=== PATIENT | male | born 1930 | race Caucasian/White ===

== ENCOUNTER 2017-04-13 13:57 | Outpatient (RCR) | payer MEDICARE, OTHER | END 2017-07-12 | disposition home or self-care (01) | LOC: ONC 13:57 | PROVIDERS: ATTEND Radiology Radiation Oncology | DX: C20 Malignant neoplasm of rectum (principal) | CPT/HCPCS: 99214 ==

== ENCOUNTER → 2019-01-02 | Outpatient (CLI) | payer MEDICARE, OTHER ==
[2019-01-02 14:49] LABS: CALCIUM 9.5 MG/DL (8.5-10.1); CREATININE SERUM 1.4 MG/DL (0.60-1.30); POTASSIUM 5.4 MMOL/L (3.6-5.0)
== END ==
LOC: LAB 14:08
PROVIDERS: ATTEND Pediatrics
DX: R60.0 Localized edema (principal)
CPT/HCPCS: 36415; 80048

== ENCOUNTER → 2019-01-11 | Outpatient (CLI) | payer MEDICARE, OTHER | LOC: CARD 11:08 | PROVIDERS: ATTEND Pediatrics | DX: I10 Essential (primary) hypertension (principal) | CPT/HCPCS: 93306 ==

== ENCOUNTER → 2019-08-16 | Outpatient (CLI) | payer MEDICARE, OTHER ==
[2019-08-16 11:44] LABS: BASOPHILS % (AUTO) 1 % (0-10); HEMATOCRIT 38 % (40-54); HEMOGLOBIN 11.7 G/DL (13.3-17.7); LYMPHOCYTES % (AUTO) 20 % (12-44); MEAN CORPUSCULAR HEMOGLOBIN 31 PG (25-34); MEAN CORPUSCULAR HGB CONC 31 G/DL (32-36); MEAN CORPUSCULAR VOLUME 99 FL (80-99); MEAN PLATELET VOLUME 10.6 FL (7.4-10.4); MONOCYTES % (AUTO) 9 % (0-12); NEUTROPHILS % (AUTO) 65 % (42-75); PLATELET COUNT 169 10^3/uL (130-400); RED CELL DISTRIBUTION WIDTH 14.5 % (10.0-14.5); WHITE BLOOD COUNT 6.2 10^3/uL (4.3-11.0)
[2019-08-16 11:45] LABS: BASOPHILS # (AUTO) 0.1 10^3/uL (0.0-0.1); EOSINOPHILS # (AUTO) 0.3 10^3/uL (0.0-0.3); EOSINOPHILS % (AUTO) 5 % (0-10); LYMPHOCYTES # (AUTO) 1.2 X 10^3 (1.0-4.0); MONOCYTES # (AUTO) 0.5 X 10^3 (0.0-1.0)
[2019-08-16 12:17] LABS: ALBUMIN 3.7 GM/DL (3.2-4.5); BILIRUBIN,TOTAL 0.6 MG/DL (0.1-1.0); CREATININE SERUM 1.56 MG/DL (0.60-1.30); TOTAL PROTEIN 6.7 GM/DL (6.4-8.2)
--- NOTE | 2019-08-17 14:41 | Diagnostic Imaging Report ---
PROCEDURE: CT chest, abdomen, and pelvis without contrast. TECHNIQUE: Multiple contiguous axial images were obtained through the chest, abdomen, and pelvis without the use of intravenous contrast. Auto Exposure Controls were utilized during the CT exam to meet ALARA standards for radiation dose reduction. INDICATION: Rectal carcinoma. The previous CT chest, abdomen and pelvis exam performed at [facility] in [place], [place] on 08/16/2019 noted postoperative changes consistent with a prior resection of a rectal carcinoma. There is no evidence for metastatic disease involving the chest, abdomen or pelvis however. This study is limited in evaluation for neoplastic disease due to the absence of intravenous contrast. Even so, there does not appear to have been any significant change since the prior study. There is no evidence for a mass in the region of the prior rectosigmoid resection to suggest recurrent neoplasm. There is no pelvic adenopathy identified either. The images through the upper abdomen failed to show any definite defect within the liver and there is no retroperitoneal or periaortic adenopathy noted. Images through the thorax show the heart is enlarged and that there are extensive coronary artery calcification evident. The mediastinal nodes seen previously are again evident and unchanged. There is no parenchymal lung mass visualized. The bone windows show no sign of a fracture or of a destructive lesion. As noted on the prior study, there is diverticulosis of the sigmoid and descending colon, but there is no sign of acute diverticulitis. The appendix was visualized and is not abnormally thickened. The cholelithiasis seen previously is again evident. There are still no sign of acute cholecystitis. The suspected cysts involving the kidneys noted on the prior study are unchanged. As noted previously, there are numerous calcifications within the spleen. 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 The adrenal glands the aorta and the inferior vena cava were unremarkable. The stomach is partially filled with fluid and consequently difficult to assess. The thyroid gland shows no definite abnormality. The prostate gland and urinary bladder are grossly unremarkable. The dorsal stimulator device seen previously is again evident. IMPRESSION: The overall appearance of the chest, abdomen and pelvis is stable when compared to prior study. There is no sign of metastatic disease. This exam is somewhat limited in evaluation for metastatic disease, however due to the absence of intravenous contrast. Dictated by: Dictated on workstation # [id number]
== END ==
LOC: RAD FS 10:48
PROVIDERS: ATTEND Internal Medicine Hematology & Oncology
DX: C20 Malignant neoplasm of rectum (principal)
CPT/HCPCS: 36415; 71250; 74176; 80053; 82378; 83615; 85025

== ENCOUNTER → 2019-11-12 | Outpatient (CLI) | payer MEDICARE, OTHER ==
[2019-11-12 13:40] LABS: ALBUMIN 3.8 GM/DL (3.2-4.5); BILIRUBIN,TOTAL 0.7 MG/DL (0.1-1.0); CALCIUM 9.2 MG/DL (8.5-10.1); CREATININE SERUM 1.49 MG/DL (0.60-1.30); POTASSIUM 5.7 MMOL/L (3.6-5.0); TOTAL PROTEIN 6.8 GM/DL (6.4-8.2)
[2019-11-12 14:02] LABS: FREE T4 (FREE THYROXINE) 0.94 NG/DL (0.70-1.48)
== END ==
LOC: LAB 12:24
PROVIDERS: ATTEND Pediatrics
DX: E11.9 Type 2 diabetes mellitus without complications (principal)
CPT/HCPCS: 36415; 80053; 83036; 84439; 84443

== ENCOUNTER → 2020-04-09 | Outpatient (CLI) | payer MEDICARE, OTHER ==
[~2020-04-09] MED LIST: ASPI-999 PO; ATEN50TA PO; CEFD300C3 PO; FURO20TA4 PO; FURO40TA4 PO; GABA-488 PO; GLYB5TAB6 PO; MELO15TA39 PO; PIOG30TA71 PO; POTA10CA43 PO; TRIA1CAP4 PO
[2020-04-09 17:03] LABS: POTASSIUM 4.2 MMOL/L (3.6-5.0)
[2020-04-09 17:05] LABS: CREATININE SERUM 1.62 MG/DL (0.60-1.30)
== END ==
LOC: LAB FS 15:40
PROVIDERS: ATTEND Family Medicine
DX: I50.33 Acute on chronic diastolic (congestive) heart failure (principal)
CPT/HCPCS: 36415; 80048; 83735

== ENCOUNTER → 2020-09-15 | Outpatient (CLI) | payer MEDICARE, OTHER ==
[2020-09-15 09:39] LABS: HEMOGLOBIN 11.8 G/DL (13.3-17.7); MEAN CORPUSCULAR HEMOGLOBIN 30 PG (25-34); WHITE BLOOD COUNT 6.5 10^3/uL (4.3-11.0)
[2020-09-15 09:40] LABS: BASOPHILS % (AUTO) 1 % (0-10); EOSINOPHILS % (AUTO) 8 % (0-10); HEMATOCRIT 36 % (40-54); LYMPHOCYTES % (AUTO) 20 % (12-44); MEAN CORPUSCULAR HGB CONC 33 G/DL (32-36); MEAN CORPUSCULAR VOLUME 92 FL (80-99); MEAN PLATELET VOLUME 10.3 FL (7.4-10.4); MONOCYTES % (AUTO) 7 % (0-12); NEUTROPHILS # (AUTO) 4.1 X 10^3 (1.8-7.8); NEUTROPHILS % (AUTO) 63 % (42-75); PLATELET COUNT 182 10^3/uL (130-400)
[2020-09-15 09:41] LABS: BASOPHILS # (AUTO) 0.1 10^3/uL (0.0-0.1); EOSINOPHILS # (AUTO) 0.5 10^3/uL (0.0-0.3); LYMPHOCYTES # (AUTO) 1.3 X 10^3 (1.0-4.0); MONOCYTES # (AUTO) 0.5 X 10^3 (0.0-1.0)
[2020-09-15 09:58] LABS: CALCIUM 8.9 MG/DL (8.5-10.1); CREATININE SERUM 1.53 MG/DL (0.60-1.30)
[2020-09-15 09:59] LABS: ALBUMIN 3.7 GM/DL (3.2-4.5); BILIRUBIN,TOTAL 0.8 MG/DL (0.1-1.0); TOTAL PROTEIN 6.9 GM/DL (6.4-8.2)
--- NOTE | 2020-09-15 10:45 | Diagnostic Imaging Report ---
PROCEDURE: CT chest, abdomen, and pelvis without contrast. TECHNIQUE: Multiple contiguous axial images were obtained through the chest, abdomen, and pelvis without the use of intravenous contrast. Auto Exposure Controls were utilized during the CT exam to meet ALARA standards for radiation dose reduction. INDICATION: Rectal carcinoma, follow-up. Comparison is made with prior CT from 08/16/2019. CT CHEST: No axillary lymphadenopathy is identified. Mediastinal and hilar evaluation is limited without intravenous contrast. Mildly prominent lymph nodes in mediastinum appear to be stable. There are coronary arterial calcifications present. No pericardial fluid is identified. Patient has developed a very small right pleural effusion. No pulmonary mass, nodule or infiltrate is detected. IMPRESSION: 1. Development of small right pleural effusion. Remainder of the study appears to be stable. No pulmonary mass or nodule is identified. CT abdomen and pelvis: No discrete liver mass is identified. Small stones within the gallbladder are again noted. There is no biliary ductal dilatation. Pancreas unremarkable. Spleen contains numerous calcified nodules consistent with granulomas. No adrenal mass is identified. Renal cortical low densities appear to be stable and suggestive of cysts. Aorta is non-aneurysmal. No central retroperitoneal or mesenteric lymphadenopathy is seen. Bowel loops are normal caliber. There is diverticulosis of the sigmoid and descending colon. Postsurgical changes at the rectosigmoid junction are again noted. No mass is seen. No definite pelvic lymphadenopathy is identified. The bladder is decompressed. Prostate gland is normal size. Bony structures are nonacute. IMPRESSION: 1. Cholelithiasis. 2. Postsurgical changes at the rectosigmoid junction. No abdominal or pelvic mass or lymphadenopathy is identified. 3. Uncomplicated diverticulosis. Dictated by: Dictated on workstation # [id number]
== END ==
LOC: RAD FS 09:07
PROVIDERS: ATTEND Internal Medicine Hematology & Oncology
DX: C20 Malignant neoplasm of rectum (principal); K80.20 Calculus of gallbladder without cholecystitis without obstruction; K57.30 Diverticulosis of large intestine without perforation or abscess without bleeding
CPT/HCPCS: 36415; 71250; 74176; 80053; 82378; 83615; 85025

== ENCOUNTER 2021-04-29 13:50 | Emergency (ER) | payer MEDICARE, OTHER ==
[~2021-04-29 13:50] MED LIST changes: +GLBR5T PO; -GLYB5TAB6 PO
[2021-04-29] MEDS ORDERED: ACETAMINOPHEN 325 MG TABLET PO STA (14:09)
--- NOTE | 2021-04-29 14:15 | ED General ---
General Stated Complaint: FEVER Source of Information: Patient, EMS History of Present Illness Date Seen by Provider: Apr 29, 2021 Time Seen by Provider: 13:52 Initial Comments 89 yo male presenting by EMS from home with complaint of fever and not feeling well x 2 days. He is incontinent of stool and urine and wears a brief. He has been having a cough and some shortness of breath. He denies any chest or abdomen pain. He has increased swelling to his legs. He has had Covid Vaccination. No ill contacts that he knows about. Timing/Duration: 1-2 Days Severity: Moderate Associated Systoms: No Chest Pain; Cough; No Diaphoresis; Fever/Chills; No Headaches; Malaise; No Nausea/Vomiting, No Rash, No Seizure; Shortness of Air; No Syncope; Weakness Allergies and Home Medications Allergies Coded Allergies: No Known Drug Allergies (Unverified , 03/31/20) Home Medications Aspirin 81 Mg Tab.chew, 81 MG PO DAILY Prescribed by: MARKOS GREWAL on 04/03/20 1224 Atenolol 50 Mg Tablet, 50 MG PO DAILY, (Reported) Cefdinir 300 Mg Capsule, 300 MG PO BID Prescribed by: SWETA IBARRA on 04/03/20 1239 Furosemide 40 Mg Tablet, 40 MG PO DAILY Prescribed by: MARKOS GREWAL on 04/03/20 1224 Gabapentin 300 Mg Capsule, 300 MG PO BID, (Reported) Glyburide 5 Mg Tablet, 10 MG PO DAILY, (Reported) Glyburide 5 Mg Tablet, 5 MG PO 1200,1800, (Reported) Pioglitazone HCl 30 Mg Tablet, 30 MG PO DAILY, (Reported) Potassium Chloride 10 Meq Capsule.er, 10 MEQ PO DAILY Prescribed by: MARKOS GREWAL on 04/03/20 1224 Patient Home Medication List Home Medication List Reviewed: Yes Review of Systems Review of Systems Constitutional: chills, fever, malaise EENTM: no symptoms reported Respiratory: cough, short of breath Cardiovascular: No chest pain; edema (increased edema to BLE) Gastrointestinal: see HPI Genitourinary: incontinence Musculoskeletal: joint pain (chronic right knee pain and uses walker for ambulation) Skin: No rash Psychiatric/Neurological: Denies Headache; Weakness (general) Hematologic/Lymphatic: Denies Blood Clots Past Acuudkr-Vozchu-Deeibl Hx Past Med/Social Hx: Reviewed Nursing Past Med/Soc Hx Patient Social History 2nd Hand Smoke Exposure: No Recent Hopitalizations: No Past Medical History Surgeries: No Respiratory: No Cardiac: Yes (CHF) Cardiomyopathy, Chronic Edema/Swelling, Hypertension Genitourinary: No Gastrointestinal: No Musculoskeletal: No Endocrine: Yes Diabetes, Non-Insulin dep HEENT: No Cancer: No Psychosocial: No Integumentary: No Blood Disorders: No Physical Exam Vital Signs Vital Signs - First Documented 04/29/21 04/29/21 13:55 14:20 Temp 38.4 Pulse 79 Resp 26 B/P (MAP) 144/64 (90) Pulse Ox 85 O2 Delivery Room Air O2 Flow Rate 2.00 FiO2 94 Capillary Refill : Height, Weight, BMI Height: '" Weight: lbs. oz. 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 as Tested Skin: Warm/Dry, Pallor Focused Exam Lactate Level 04/29/21 14:10: Lactic Acid Level 1.69 Lactic Acid Level Laboratory Tests Test 04/29/21 14:10 Lactic Acid Level 1.69 MMOL/L (0.50-2.00) Progress/Results/Core Measures Suspected Sepsis SIRS Temperature: Pulse: Respiratory Rate: Laboratory Tests 04/29/21 14:10: White Blood Count 7.6 Blood Pressure / Mean: 04/29/21 14:10: Lactic Acid Level 1.69 Laboratory Tests 04/29/21 14:10: Creatinine 1.41H, Platelet Count 148, Total Bilirubin 1.6H Results/Orders Lab Results Laboratory Tests Test 04/29/21 14:00 04/29/21 14:10 Range/Units Urine Color YELLOW Urine Clarity CLEAR Urine pH 6.0 5-9 Urine Specific [place] 1.025 H 1.016-1.022 Urine Protein 1+ H NEGATIVE Urine Glucose (UA) NEGATIVE NEGATIVE Urine Ketones TRACE H NEGATIVE Urine Nitrite NEGATIVE NEGATIVE Urine Bilirubin NEGATIVE NEGATIVE Urine Urobilinogen 1.0 < = 1.0 MG/DL Urine Leukocyte Esterase NEGATIVE NEGATIVE Urine RBC (Auto) 1+ H NEGATIVE Urine RBC 5-10 H /HPF Urine WBC 0-2 /HPF Urine Squamous Epithelial Cells 2-5 /HPF Urine Crystals /LPF Urine Amorphous Sediment FEW JEAN CARLOS URATES H /LPF Urine Bacteria NEGATIVE /HPF Urine Casts PRESENT /LPF Urine Hyaline Casts 0-2 H /LPF Urine Mucus MODERATE H /LPF Urine Culture Indicated NO White Blood Count 7.6 4.3-11.0 10^3/uL Red Blood Count 3.93 L 4.35-5.85 10^6/uL Hemoglobin 12.0 L 13.3-17.7 G/DL Hematocrit 37 L 40-54 % Mean Corpuscular Volume 93 80-99 FL Mean Corpuscular Hemoglobin 31 25-34 PG Mean Corpuscular Hemoglobin Concent 33 32-36 G/DL Red Cell Distribution Width 14.6 H 10.0-14.5 % Platelet Count 148 130-400 10^3/uL Mean Platelet Volume 10.7 H 7.4-10.4 FL Immature Granulocyte % (Auto) 1 % Neutrophils (%) (Auto) 74 42-75 % Lymphocytes (%) (Auto) 14 12-44 % Monocytes (%) (Auto) 11 0-12 % Eosinophils (%) (Auto) 0 0-10 % Basophils (%) (Auto) 1 0-10 % Neutrophils # (Auto) 5.6 1.8-7.8 X 10^3 Lymphocytes # (Auto) 1.1 1.0-4.0 X 10^3 Monocytes # (Auto) 0.8 0.0-1.0 X 10^3 Eosinophils # (Auto) 0.0 0.0-0.3 10^3/uL Basophils # (Auto) 0.0 0.0-0.1 10^3/uL Immature Granulocyte # (Auto) 0.0 0.0-0.1 10^3/uL Sodium Level 139 135-145 MMOL/L Potassium Level 4.2 3.6-5.0 MMOL/L Chloride Level 102 98-107 MMOL/L Carbon Dioxide Level 24 21-32 MMOL/L Anion Gap 13 5-14 MMOL/L Blood Urea Nitrogen 28 H 7-18 MG/DL Creatinine 1.41 H 0.60-1.30 MG/DL Estimat Glomerular Filtration Rate 47 BUN/Creatinine Ratio 20 Glucose Level 171 H 70-105 MG/DL Lactic Acid Level 1.69 0.50-2.00 MMOL/L Calcium Level 8.9 8.5-10.1 MG/DL Corrected Calcium 9.3 8.5-10.1 MG/DL Magnesium Level 1.8 1.6-2.4 MG/DL Total Bilirubin 1.6 H 0.1-1.0 MG/DL Aspartate Amino Transf (AST/SGOT) 22 5-34 U/L Alanine Aminotransferase (ALT/SGPT) 10 0-55 U/L Alkaline Phosphatase 109 40-136 U/L Troponin I < 0.30 <0.30 NG/ML C-Reactive Protein 1.01 H <0.50 MG/DL Pro-B-Type Natriuretic Peptide 11124.0 H <75.0 PG/ML Total Protein 6.7 6.4-8.2 GM/DL Albumin 3.5 3.2-4.5 GM/DL My Orders Orders - TRACEY THURSTON MD Cbc With Automated Diff (04/29/21 14:06) Comprehensive Metabolic Panel (04/29/21 14:06) Blood Culture (04/29/21 14:06) Ua Culture If Indicated (04/29/21 14:06) Chest 1 View Ap/Pa Only (04/29/21 14:06) Ed Iv/Invasive Line Start (04/29/21 14:06) Crp Fs (04/29/21 14:06) Lactic Acid Analyzer (04/29/21 14:06) Troponin I Fs (04/29/21 14:06) Magnesium (04/29/21 14:06) Probnp Fs (04/29/21 14:06) Can Cath (04/29/21 14:06) Monitor-Rhythm Ecg Trace Only (04/29/21 14:06) Ekg Tracing (04/29/21 14:08) O2 (04/29/21 14:08) Acetaminophen Tablet/Caplet (Tylenol T (04/29/21 14:09) Furosemide Injection (Lasix Injection) (04/29/21 15:14) Levofloxacin 500 Mg/100 Ml Iv (Levaquin (04/29/21 15:22) Vital Signs/I&O 04/29/21 04/29/21 04/29/21 13:55 14:20 15:36 Temp 38.4 37.5 Pulse 79 78 Resp 26 20 B/P (MAP) 144/64 (90) 132/58 Pulse Ox 85 94 94 O2 Delivery Room Air Nasal Cannula Nasal Cannula O2 Flow Rate 2.00 2.00 FiO2 94 Capillary Refill : Progress Note #1: Progress Note obtain labs with blood cultures and lactic acid. ECG and cardiac threat monitoring analyst. CXR with his hypoxia and fever. supplemental O2 to help maintain sats over 91%. Can catheter to monitor urine output and obtain urine for testing. Differential diagnosis includes pneumonia, sepsis, uti, pyelonephritis, CHF exacerbation Progress Note #2: Progress Note labs do not sh ow elevated WBC or lactic acid. Stable renal insufficiency. CXR shows CHF with pleural effusion and possible infiltrate right [place] [address]. This is about 4 times the level he was last March 2020. With low grade fever and hypoxia he likely does have a little pneumonia with not being able to fully expand lungs due to pleural effusion and CHF exacerbation. Will give IV lasix and check with pt about where he wants to be admitted since he follows with Dr. Bradley we would usually send the patient to [facility]. Pt and spouse were wanting to go to [facility] and see Dr. Bradley. They thought he might be on vacation already though. 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 1520 d/w Dr. Bradley and he accepted pt. 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 Will give first dose of antibiotics by giving Levaquin 500 mg IV x 1 at the request of Dr. Bradley. ECG Initial ECG Impression Date: Apr 29, 2021 Initial ECG Impression Time: 14:12 Initial ECG Rate: 77 Initial ECG Rhythm: Normal Sinus Initial ECG Comparisson: Unchanged Comment Ectopic atrial rhythm with rate 77 bpm. [place] interval of [address] ms. [address]. No acute [address] elevation. QT interval of 453 ms and QTc interval of 513 ms. Appears stable from prior tracings March 2020. Diagnostic Imaging Diagonstic Imaging: Xray Plain Films/CT/US/NM/MRI: chest Comments [facility] [place], [place] NAME: FRANCISCO MARTINEZ [facility] REC#: [id number] PT STATUS: REG ER : 1930 PHYSICIAN: TRACEY THURSTON MD ADMIT DATE: 04/29/21/ER FS Draft Date of Exam:04/29/21 CHEST 1 VIEW AP/PA ONLY INDICATION: Cough and fever. EXAMINATION: Portable chest at 02:01 p.m. FINDINGS: There is cardiomegaly. There is pulmonary vascular congestion. There is a right pleural effusion. IMPRESSION: Congestive heart failure with small right pleural effusion. Some superimposed right basilar pneumonia cannot be excluded. Dictated on workstation # [id number] Dict: 04/29/21 1416 Trans: 04/29/21 1420 [id number] Interpreted by: DENISE DOCKERY MD Electronically signed by: Reviewed: Reviewed by Me Departure Impression Primary Impression: Acute exacerbation of CHF (congestive heart failure) Qualified Codes: I50.9 - Heart failure, unspecified Additional Impressions: Pleural effusion due to CHF (congestive heart failure) Hypoxia Fever in adult Right lower lobe pulmonary infiltrate Disposition: XFER SHT-TRM HOSP Condition: Stable Transfer Transfer Reason: Patient preference Time Spoke to Accepting Phy: 15:20 Transfer Progress Notes d/w Dr. Darin Bradley and he accepted pt for transfer. Will continue with diuresis and treat with antibiotics and medicine for his hypoxia and breathing. When asked about antibiotics he was ok with starting Levaquin 500 mg IV x 1 here and will continue meds tomorrow. Transfer Facility: [facility] Method of Transfer: EMS Departure-Patient Inst. Referrals: DARIN BRADLEY MD (PCP/Family) Primary Care Physician TRACEY THURSTON MD Apr 29, 2021 14:15
--- NOTE | 2021-04-29 14:21 | Diagnostic Imaging Report ---
INDICATION: Cough and fever. EXAMINATION: Portable chest at 02:01 p.m. FINDINGS: There is cardiomegaly. There is pulmonary vascular congestion. There is a right pleural effusion. IMPRESSION: Congestive heart failure with small right pleural effusion. Some superimposed right basilar pneumonia cannot be excluded. Dictated by: Dictated on workstation # [id number]
[2021-04-29 14:23] LABS: WHITE BLOOD COUNT 7.6 10^3/uL (4.3-11.0)
[2021-04-29 14:24] LABS: HEMATOCRIT 37 % (40-54); MEAN CORPUSCULAR HEMOGLOBIN 31 PG (25-34); MEAN CORPUSCULAR HGB CONC 33 G/DL (32-36); MEAN CORPUSCULAR VOLUME 93 FL (80-99); PLATELET COUNT 148 10^3/uL (130-400)
[2021-04-29 14:25] LABS: BASOPHILS % (AUTO) 1 % (0-10); EOSINOPHILS % (AUTO) 0 % (0-10); LYMPHOCYTES # (AUTO) 1.1 X 10^3 (1.0-4.0); LYMPHOCYTES % (AUTO) 14 % (12-44); MEAN PLATELET VOLUME 10.7 FL (7.4-10.4); MONOCYTES # (AUTO) 0.8 X 10^3 (0.0-1.0); MONOCYTES % (AUTO) 11 % (0-12); NEUTROPHILS # (AUTO) 5.6 X 10^3 (1.8-7.8); NEUTROPHILS % (AUTO) 74 % (42-75)
[2021-04-29 14:39] LABS: CLARITY,URINE CLEAR; COLOR,URINE YELLOW
[2021-04-29 14:40] LABS: BILIRUBIN,URINE NEGATIVE (NEGATIVE); GLUCOSE, URINE (UA) NEGATIVE (NEGATIVE); KETONES,URINE TRACE (NEGATIVE); NITRITE,URINE NEGATIVE (NEGATIVE); PROTEIN,URINE 1+ (NEGATIVE)
[2021-04-29 14:41] LABS: BACTERIA,URINE NEGATIVE /HPF; LEUKOCYTE ESTERASE ,URINE NEGATIVE (NEGATIVE); WBC,URINE 0-2 /HPF
[2021-04-29 14:43] LABS: AMORPHOUS SEDIMENT,UR FEW AMOR URATES /LPF; HYALINE CASTS, URINE 0-2 /LPF
[2021-04-29 14:53] LABS: BILIRUBIN,TOTAL 1.6 MG/DL (0.1-1.0); CALCIUM 8.9 MG/DL (8.5-10.1); CREATININE SERUM 1.41 MG/DL (0.60-1.30); MAGNESIUM 1.8 MG/DL (1.6-2.4); POTASSIUM 4.2 MMOL/L (3.6-5.0)
[2021-04-29 14:54] LABS: ALBUMIN 3.5 GM/DL (3.2-4.5); TOTAL PROTEIN 6.7 GM/DL (6.4-8.2)
[2021-04-29] MEDS ORDERED: FUROSEMIDE 40 MG/4 ML INJ (LASIX) IVP STA (15:14)
[2021-04-29 15:36] VITALS: BP 132/58
== END 2021-04-29 16:20 ==
LOC: EDUNIT# 13:50 → ER FS 13:51
DX: I11.0 Hypertensive heart disease with heart failure (principal); I50.9 Heart failure, unspecified; R50.9 Fever, unspecified; R91.8 Other nonspecific abnormal finding of lung field; R05 Cough; E11.9 Type 2 diabetes mellitus without complications; E66.9 Obesity, unspecified; Z68.32 Body mass index [BMI] 32.0-32.9, adult; Z79.82 Long term (current) use of aspirin; Z79.84 Long term (current) use of oral hypoglycemic drugs
CPT/HCPCS: 36415; 51702; 71045; 80053; 81000; 83605; 83735; 83880; 84484; 85025; 86141; 87040; 93005; 93041

== ENCOUNTER → 2021-09-10 | Outpatient (CLI) | payer MEDICARE, OTHER ==
--- NOTE | 2021-09-10 10:24 | Diagnostic Imaging Report ---
INDICATION: Right knee pain. TIME OF EXAM: 10:03 AM 3 views of the right knee were obtained. There is significant lateral compartmental degenerative changes with joint space narrowing and marginal spurring. Milder medial and patellofemoral compartment degenerative changes noted. No fracture, dislocation or effusion is seen. Extensive vascular calcifications throughout the femoral tibial system is noted. IMPRESSION: Degenerative changes. No acute bony abnormality is detected. Dictated by: Dictated on workstation # [id number]
== END ==
LOC: RAD FS 09:39
PROVIDERS: ATTEND Nurse Practitioner
DX: M17.11 Unilateral primary osteoarthritis, right knee (principal)
CPT/HCPCS: 73562

== ENCOUNTER → 2021-09-14 | Outpatient (CLI) | payer MEDICARE, OTHER ==
[2021-09-14 12:32] LABS: MEAN CORPUSCULAR HEMOGLOBIN 31 pg (25-34); WHITE BLOOD COUNT 7.8 10^3/uL (4.3-11.0)
[2021-09-14 12:33] LABS: BASOPHILS % (AUTO) 1 % (0-10); EOSINOPHILS % (AUTO) 2 % (0-10); HEMATOCRIT 39 % (40-54); LYMPHOCYTES % (AUTO) 14 % (12-44); MEAN CORPUSCULAR HGB CONC 34 g/dL (32-36); MEAN CORPUSCULAR VOLUME 92 fL (80-99); MEAN PLATELET VOLUME 11.1 fL (9.0-12.2); MONOCYTES % (AUTO) 8 % (0-12); NEUTROPHILS # (AUTO) 5.9 X 10^3 (1.8-7.8); NEUTROPHILS % (AUTO) 75 % (42-75); PLATELET COUNT 186 10^3/uL (130-400)
--- NOTE | 2021-09-14 12:33 | Diagnostic Imaging Report ---
PROCEDURE: CT chest, abdomen, and pelvis without contrast. TECHNIQUE: Multiple contiguous axial images were obtained through the chest, abdomen, and pelvis without the use of intravenous contrast. Auto Exposure Controls were utilized during the CT exam to meet ALARA standards for radiation dose reduction. INDICATION: Rectal cancer followup. Comparison is made with a prior study from 09/15/2020. CT CHEST: There is no suspicious lung mass or infiltrate. There is no effusion or pneumothorax. There is no mediastinal, axillary or hilar lymphadenopathy. There are coronary artery calcifications present. No suspicious bony lesions are seen. These findings are similar to 09/15/[address] ABDOMEN AND PELVIS: No liver lesions are seen. Gallstones layering in the dependent portion of the gallbladder. The gallbladder is mildly distended at 5.4 cm but there is motion artifact at this level and no definite gallbladder wall edema is seen. The bile ducts are not dilated. There are granulomatous calcifications of the spleen. No suspicious lesions are seen. The pancreas is atrophic. The adrenals are normal. There are small pedunculated lesions on the kidneys which are stable compared to the 09/15/2020 study. These are therefore most likely benign. There is no hydronephrosis of either kidney. Ureters and bladder are normal. Prostate is normal. There are changes of prior surgery at the rectosigmoid junction region. There are scattered diverticula in the colon. The appendix is normal. No acute bowel abnormality is seen. There is no ascites. There is no adenopathy. No suspicious bony lesions are seen. IMPRESSION: CT of the chest, abdomen and pelvis shows no evidence of recurrent or metastatic disease. There is cholelithiasis. There is no significant change from the prior exam. Dictated by: Dictated on workstation # [id number]
[2021-09-14 12:34] LABS: EOSINOPHILS # (AUTO) 0.2 10^3/uL (0.0-0.3); LYMPHOCYTES # (AUTO) 1.1 X 10^3 (1.0-4.0); MONOCYTES # (AUTO) 0.6 X 10^3 (0.0-1.0)
[2021-09-14 12:35] LABS: BILIRUBIN,TOTAL 0.8 MG/DL (0.1-1.0); CALCIUM 8.8 MG/DL (8.5-10.1); CREATININE SERUM 1.51 MG/DL (0.60-1.30); POTASSIUM 4.3 MMOL/L (3.6-5.0)
[2021-09-14 12:36] LABS: ALBUMIN 3.8 GM/DL (3.2-4.5); TOTAL PROTEIN 6.7 GM/DL (6.4-8.2)
== END ==
LOC: RAD FS 09:50
PROVIDERS: ATTEND Internal Medicine Hematology & Oncology
DX: K80.20 Calculus of gallbladder without cholecystitis without obstruction (principal); C20 Malignant neoplasm of rectum
CPT/HCPCS: 36415; 71250; 74176; 80053; 82378; 83615; 85025

== ENCOUNTER → 2021-10-08 | Outpatient (CLI) | payer MEDICARE, OTHER | LOC: LAB FS 10:45 | PROVIDERS: ATTEND Internal Medicine Hematology & Oncology | DX: C20 Malignant neoplasm of rectum (principal) | CPT/HCPCS: 36415; 82378 ==

== ENCOUNTER → 2021-10-13 | Outpatient (CLI) | payer MEDICARE, OTHER ==
--- NOTE | 2021-10-13 16:19 | Diagnostic Imaging Report ---
INDICATION: Rectal carcinoma, restaging. Patient has elevated CEA levels. TECHNIQUE: Serum blood glucose level at the time of injection is 111 mg/dL. Patient was administered 13.6 mCi [id number] intravenously in the left antecubital location and PET imaging was performed from the top of the skull to mid thighs. Noncontrast CT was also performed for attenuation correction and anatomic correlation. COMPARISON: No prior PET/CT studies are available for comparison. Comparison is made with recent CT chest, abdomen and pelvis studies from 09/14/2021. There is symmetric activity throughout the brain. Soft tissues of the neck are unremarkable. No definite hypermetabolic mediastinal or hilar lymph nodes are identified. There does appear to be a mass that is hypermetabolic in the dome of the right lobe of the liver with SUV max of 8.2. There is a mass more inferiorly left lobe with SUV max of 5.6. No other suspicious regions of hypermetabolism are identified. Physiologic activity throughout the gastrointestinal and genitourinary tracts noted. IMPRESSION: Development of hypermetabolic lesions within the liver consistent with hepatic metastatic disease. No other significant abnormality is detected. Dictated by: Dictated on workstation # [id number]
== END ==
LOC: RAD 13:30
PROVIDERS: ATTEND Internal Medicine Hematology & Oncology
DX: C20 Malignant neoplasm of rectum (principal); K76.9 Liver disease, unspecified
CPT/HCPCS: 78815; A9552

== ENCOUNTER 2021-11-05 07:56 | Outpatient (CLI) | payer MEDICARE, OTHER ==
[~2021-11-05] VITALS: Ht 175.3 cm; Wt 88.0 kg
[2021-11-05] VITALS (12 sets, daily range): BP systolic 140–184; BP diastolic 46–67
[2021-11-05] MEDS ORDERED: NS IV 1000 ML 1,000 ML IV STA (08:06)
[2021-11-05] MEDS ORDERED: LIDOCAINE 1% INJ 20 ML 20 ML VIAL INJ ONE (08:15)
[2021-11-05] MEDS ORDERED: fentaNYL INJ 100 MCG/2 ML AMP IVP ONE (08:15)
[2021-11-05] MEDS ORDERED: MIDAZOLAM 2 MG/2 ML (VERSED) VIAL IVP ONE (08:15)
[2021-11-05 08:41] LABS: BASOPHILS # (AUTO) 0.1 10^3/uL (0.0-0.1); BASOPHILS % (AUTO) 1 % (0-10); EOSINOPHILS # (AUTO) 0.4 10^3/uL (0.0-0.3); EOSINOPHILS % (AUTO) 6 % (0-10); HEMATOCRIT 38 % (40-54); HEMOGLOBIN 12.5 g/dL (13.3-17.7); LYMPHOCYTES # (AUTO) 1.1 10^3/uL (1.0-4.0); LYMPHOCYTES % (AUTO) 17 % (12-44); MEAN CORPUSCULAR HEMOGLOBIN 31 pg (25-34); MEAN CORPUSCULAR HGB CONC 33 g/dL (32-36); MEAN CORPUSCULAR VOLUME 94 fL (80-99); MEAN PLATELET VOLUME 10.5 fL (9.0-12.2); MONOCYTES # (AUTO) 0.4 10^3/uL (0.0-1.0); MONOCYTES % (AUTO) 7 % (0-12); NEUTROPHILS # (AUTO) 4.5 10^3/uL (1.8-7.8); NEUTROPHILS % (AUTO) 69 % (42-75); PLATELET COUNT 192 10^3/uL (130-400); WHITE BLOOD COUNT 6.5 10^3/uL (4.3-11.0)
--- NOTE | 2021-11-05 10:08 | Pre-Op Note & Conscious Sedat ---
Pre-Operative Progress Note H&P Reviewed The H&P was reviewed, patient examined and no changes noted. Date H&P Reviewed: Nov 05, 2021 Time H&P Reviewed: 09:00 Pre-Op Diagnosis: liver mass Conscious Sedation Pre-Proced Time 09:00 ASA Score 2 For ASA 3 and 4: Consider anesthesia and medical clearance. Also, for patients with a history of failed moderate sedation consider anesthesia. Airway Lungs Heart ASA score ASA 1: a normal healthy patient ASA 2: a patient with a mild systemic disease (mid diabetes, controlled hypertension, obesity ASA 3: a patient with a severe systemic disease that limits activity (angina, COPD, prior Myocardial infarction) ASA 4: a patient with an incapacitating disease that is a constant threat to life (CHF, renal failure) ASA 5: a moribund patient not expected to survive 24 hrs. (ruptured aneurysm) ASA 6: a declared brain- patient whose organs are being harvested. For emergent operations, add the letter E after the classification Mallampati Classification Grade 2 Sedation Plan Analgesia, Amnesia, Plan communicated to team members, Discussed options with patient/fam, Discussed risks with patient/fam The patient is an appropriate candidate to undergo the planned procedure, sedation, and anesthesia. The patient immediately re-assessed prior to indication. CRISTOPHER ALAS MD Nov 05, 2021 10:08
--- NOTE | 2021-11-05 10:28 | Diagnostic Imaging Report ---
INDICATION: Liver mass. Patient presents for CT-guided biopsy. TECHNIQUE: All CT scans use one or more of the following dose optimizing techniques: automated exposure control, MA and/or KvP adjustment based on patient size and exam type or iterative reconstruction. Patient was brought to the CT suite and placed on table in supine position. Axial imaging through the abdomen was performed to evaluate appropriate entry site. The procedure was performed utilizing conscious sedation with radiology nursing and constant patient monitoring. Patient was given a total of 50 mcg of fentanyl intravenously and 1 mg of Versed intravenously. Total procedure time was 8 minutes. The right upper abdomen was prepped and draped in usual sterile fashion. Small amount of 1% lidocaine was utilized for local anesthesia. 18-gauge coaxial Temno needle was advanced and placed with its tip within the low-density lesion left lobe of the liver. 4 core biopsies were obtained. Needle was removed during blood patch administration. Follow-up imaging shows no complicating features. IMPRESSION: Successful CT-guided core biopsy of left lobe liver mass, utilizing conscious sedation. Pathology results are currently pending. Dictated by: Dictated on workstation # [id number]
[2021-11-05] MEDS ORDERED: HYDROcodone/APAP 5 MG/325 MG (LORTAB) TAB PO PRN (10:45)
== END 2021-11-05 12:20 ==
LOC: SDC 07:56
PROVIDERS: ATTEND Internal Medicine Hematology & Oncology
DX: C20 Malignant neoplasm of rectum (principal)
CPT/HCPCS: 36415; 77012; 85025; 85610; 85730; 99156

== ENCOUNTER 2021-11-25 15:15 | Emergency (ER) | payer MEDICARE, OTHER ==
[~2021-11-25] VITALS: Ht 175.3 cm; Wt 88.5 kg
--- NOTE | 2021-11-25 15:43 | ED General ---
General Chief Complaint: General Problems/Pain Stated Complaint: FALL,WEAKNESS Source of Information: Patient Exam Limitations: No Limitations History of Present Illness Date Seen by Provider: Nov 25, 2021 Time Seen by Provider: 15:20 Initial Comments Patient is an 89-year-old male who presents with increased generalized weakness and inability to stand or walk without assistance. Patient does have home home health support, but has been relying on his who is also in her late 80s and is unable to physically support him. Patient denies current complaint pain complaint or injury. Denies headache, neck pain, chest pain palpitations, shortness of breath. No fever chills, nausea vomiting or sweats. No abdominal pain, diarrhea. No urinary frequency urgency or dysuria. No rash. No dizziness lightheadedness or focal extremity weakness or loss of sensation. No other acute symptoms or complaints Timing/Duration: Getting Worse Severity: Moderate Modifying Factors: improves with Other Associated Systoms: Other Allergies and Home Medications Allergies Coded Allergies: No Known Drug Allergies (Unverified , 03/31/20) Patient Home Medication List Home Medication List Reviewed: Yes Aspirin (Aspirin) 81 Mg Tab.chew, 81 MG PO DAILY Prescribed by: MARKOS GREWAL on 04/03/20 1224 Atenolol (Atenolol) 50 Mg Tablet, 50 MG PO DAILY, (Reported) Entered as Reported by: JONA DÍAZ on 03/31/20 1439 Cefdinir (Cefdinir) 300 Mg Capsule, 300 MG PO BID Prescribed by: SWETA IBARRA on 04/03/20 1239 Furosemide (Furosemide) 40 Mg Tablet, 40 MG PO DAILY Prescribed by: MARKOS GREWAL on 04/03/20 1224 Gabapentin (Gabapentin) 300 Mg Capsule, 300 MG PO BID, (Reported) Entered as Reported by: JONA DÍAZ on 03/31/20 1439 Glyburide (Glyburide) 5 Mg Tablet, 10 MG PO DAILY, (Reported) Entered as Reported by: JONA DÍAZ on 03/31/20 1439 Glyburide (Glyburide) 5 Mg Tablet, 5 MG PO 1200,1800, (Reported) Entered as Reported by: JONA DÍAZ on 03/31/20 1439 Pioglitazone HCl (Pioglitazone HCl) 30 Mg Tablet, 30 MG PO DAILY, (Reported) Entered as Reported by: JONA DÍAZ on 03/31/20 1439 Potassium Chloride (Potassium Chloride) 10 Meq Capsule.er, 10 MEQ PO DAILY Prescribed by: MARKOS GREWAL on 04/03/20 1224 Review of Systems Review of Systems Constitutional: see HPI EENTM: see HPI Respiratory: see HPI Cardiovascular: see HPI Gastrointestinal: see HPI Genitourinary: see HPI Musculoskeletal: see HPI Skin: see HPI Psychiatric/Neurological: See HPI Hematologic/Lymphatic: See HPI Immunological/Allergic: see HPI All Other Systems Reviewed Negative Unless Noted: Yes Past Cdhghrh-Mqnjwu-Iwjaay Hx Patient Social History Tobacco Use?: No Past Medical History Surgeries: No Respiratory: No Cardiac: Yes (CHF) Cardiomyopathy, Chronic Edema/Swelling, Hypertension Genitourinary: No Gastrointestinal: No Musculoskeletal: No Endocrine: Yes Diabetes, Non-Insulin dep HEENT: No Cancer: No Psychosocial: No Integumentary: No Blood Disorders: No Physical Exam Vital Signs Vital Signs - First Documented 11/25/21 15:20 Temp 36.1 Pulse 61 Resp 18 B/P (MAP) 155/55 (88) Pulse Ox 98 O2 Delivery Room Air Capillary Refill : Height, Weight, BMI Height: '" Weight: lbs. oz. kg; 32.28 BMI Method: General Appearance: No Apparent Distress, Other (Fatigued and generally weak appearing, no acute distress) Eyes: Bilateral Eye Normal Inspection, Bilateral Eye PERRL, Bilateral Eye EOMI HEENT: PERRL/EOMI, Normal ENT Inspection, Pharynx Normal Neck: Non Tender, Supple Respiratory: Lungs Clear, Normal Breath Sounds Cardiovascular: Regular Rate, Rhythm, No Edema Gastrointestinal: Non Tender, Soft Neurologic/Psychiatric: Alert, Oriented x3, No Motor/Sensory Deficits, software publisher II- XII Norm as Tested Focused Exam Sepsis Stage: Ruled Out Lactate Level 11/25/21 15:45: Lactic Acid Level 1.86 Lactic Acid Level Laboratory Tests Test 11/25/21 15:45 Lactic Acid Level 1.86 MMOL/L (0.50-2.00) Progress/Results/Core Measures Suspected Sepsis SIRS Temperature: Pulse: Respiratory Rate: Laboratory Tests 11/25/21 15:45: White Blood Count 15.7H Blood Pressure / Mean: 11/25/21 15:45: Lactic Acid Level 1.86 Laboratory Tests 11/25/21 15:45: Creatinine 1.67H, Platelet Count 361, Total Bilirubin 1.5H Results/Orders Lab Results Laboratory Tests Test 11/25/21 15:45 11/25/21 16:00 Range/Units White Blood Count 15.7 H 4.3-11.0 10^3/uL Red Blood Count 3.82 L 4.30-5.52 10^6/uL Hemoglobin 11.6 L 13.3-17.7 g/dL Hematocrit 35 L 40-54 % Mean Corpuscular Volume 91 80-99 fL Mean Corpuscular Hemoglobin 30 25-34 pg Mean Corpuscular Hemoglobin Concent 34 32-36 g/dL Red Cell Distribution Width 13.0 10.0-14.5 % Platelet Count 361 130-400 10^3/uL Mean Platelet Volume 9.8 9.0-12.2 fL Immature Granulocyte % (Auto) 1 % Neutrophils (%) (Auto) 85 H 42-75 % Lymphocytes (%) (Auto) 7 L 12-44 % Monocytes (%) (Auto) 6 0-12 % Eosinophils (%) (Auto) 1 0-10 % Basophils (%) (Auto) 0 0-10 % Neutrophils # (Auto) 13.3 H 1.8-7.8 X 10^3 Lymphocytes # (Auto) 1.1 1.0-4.0 X 10^3 Monocytes # (Auto) 1.0 0.0-1.0 X 10^3 Eosinophils # (Auto) 0.1 0.0-0.3 10^3/uL Basophils # (Auto) 0.1 0.0-0.1 10^3/uL Immature Granulocyte # (Auto) 0.1 0.0-0.1 10^3/uL Neutrophils % (Manual) 79 % Lymphocytes % (Manual) 7 % Monocytes % (Manual) 9 % Eosinophils % (Manual) 1 % Basophils % (Manual) 0 % Band Neutrophils 4 % Platelet Estimate NORMAL Blood Morphology Comment NORMAL Sodium Level 138 135-145 MMOL/L Potassium Level 4.6 3.6-5.0 MMOL/L Chloride Level 98 98-107 MMOL/L Carbon Dioxide Level 26 21-32 MMOL/L Anion Gap 14 5-14 MMOL/L Blood Urea Nitrogen 47 H 7-18 MG/DL Creatinine 1.67 H 0.60-1.30 MG/DL Estimat Glomerular Filtration Rate 39 BUN/Creatinine Ratio 28 Glucose Level 183 H 70-105 MG/DL Lactic Acid Level 1.86 0.50-2.00 MMOL/L Calcium Level 8.9 8.5-10.1 MG/DL Corrected Calcium 9.5 8.5-10.1 MG/DL Total Bilirubin 1.5 H 0.1-1.0 MG/DL Aspartate Amino Transf (AST/SGOT) 48 H 5-34 U/L Alanine Aminotransferase (ALT/SGPT) 26 0-55 U/L Alkaline Phosphatase 148 H 40-136 U/L Troponin I < 0.30 <0.30 NG/ML Total Protein 7.0 6.4-8.2 GM/DL Albumin 3.3 3.2-4.5 GM/DL Urine Color YELLOW Urine Clarity CLOUDY Urine pH 6.0 5-9 Urine Specific [place] 1.015 L 1.016-1.022 Urine Protein NEGATIVE NEGATIVE Urine Glucose (UA) NEGATIVE NEGATIVE Urine Ketones NEGATIVE NEGATIVE Urine Nitrite POSITIVE H NEGATIVE Urine Bilirubin NEGATIVE NEGATIVE Urine Urobilinogen 0.2 < = 1.0 MG/DL Urine Leukocyte Esterase 3+ H NEGATIVE Urine RBC (Auto) 2+ H NEGATIVE Urine RBC 5-10 H /HPF Urine WBC TNTC H /HPF Urine Squamous Epithelial Cells 2-5 /HPF Urine Crystals NONE /LPF Urine Bacteria LARGE H /HPF Urine Casts NONE /LPF Urine Mucus NEGATIVE /LPF Urine Culture Indicated YES My Orders Orders - RUPERT CURRIE DO Cbc With Automated Diff (11/25/21 15:28) Comprehensive Metabolic Panel (11/25/21 15:28) Lactic Acid Analyzer (11/25/21 15:28) Chest 1 View Ap/Pa Only (11/25/21 15:28) Ekg Tracing (11/25/21 15:28) Ua Culture If Indicated (11/25/21 15:28) Ct Head Wo (11/25/21 15:28) Troponin I Fs (11/25/21 15:35) Manual Differential (11/25/21 15:45) Urine Culture (11/25/21 16:00) Blood Culture (11/25/21 17:05) Ns Iv 1000 Ml (Sodium Chloride 0.9%) (11/25/21 17:15) Ceftriaxone 1 Gm Pre-Mix (Rocephin 1 Gm (11/25/21 17:15) Medications Given in ED Current Medications Medications Dose Ordered Sig/Chun Route Start Time Stop Time Status Last Admin Dose Admin Ceftriaxone Sodium/Dextrose 50 ml @ 100 mls/hr ONCE ONCE IV 11/25/21 17:15 11/25/21 17:44 DC 11/25/21 18:05 100 MLS/HR Vital Signs/I&O 11/25/21 15:20 Temp 36.1 Pulse 61 Resp 18 B/P (MAP) 155/55 (88) Pulse Ox 98 O2 Delivery Room Air Capillary Refill : Departure Communication (Admissions) Patient with generalized weakness, dehydration and urinary tract infection. IV fluids antibiotics given. Patient accepted at [facility] per Dr. Kaur. Impression Primary Impression: Generalized weakness Additional Impression: Urinary tract infection Disposition: XFER SHT-TRM HOSP Condition: Stable Transfer Transfer Reason: Exceeds level of care Method of Transfer: EMS Departure-Patient Inst. Decision time for Depature: 19:46 Referrals: DARIN BRADLEY MD (PCP/Family) Primary Care Physician RUPERT CURRIE DO Nov 25, 2021 15:43
[2021-11-25 16:03] LABS: BASOPHILS % (AUTO) 0 % (0-10); EOSINOPHILS % (AUTO) 1 % (0-10); HEMATOCRIT 35 % (40-54); HEMOGLOBIN 11.6 g/dL (13.3-17.7); LYMPHOCYTES % (AUTO) 7 % (12-44); MEAN CORPUSCULAR HEMOGLOBIN 30 pg (25-34); MEAN CORPUSCULAR HGB CONC 34 g/dL (32-36); MEAN CORPUSCULAR VOLUME 91 fL (80-99); MEAN PLATELET VOLUME 9.8 fL (9.0-12.2); MONOCYTES % (AUTO) 6 % (0-12); NEUTROPHILS % (AUTO) 85 % (42-75); PLATELET COUNT 361 10^3/uL (130-400); WHITE BLOOD COUNT 15.7 10^3/uL (4.3-11.0)
[2021-11-25 16:04] LABS: BASOPHILS # (AUTO) 0.1 10^3/uL (0.0-0.1); EOSINOPHILS # (AUTO) 0.1 10^3/uL (0.0-0.3); LYMPHOCYTES # (AUTO) 1.1 X 10^3 (1.0-4.0); NEUTROPHILS # (AUTO) 13.3 X 10^3 (1.8-7.8)
[2021-11-25 16:20] LABS: BILIRUBIN,URINE NEGATIVE (NEGATIVE); CLARITY,URINE CLOUDY; COLOR,URINE YELLOW; GLUCOSE, URINE (UA) NEGATIVE (NEGATIVE); KETONES,URINE NEGATIVE (NEGATIVE); LEUKOCYTE ESTERASE ,URINE 3+ (NEGATIVE); NITRITE,URINE POSITIVE (NEGATIVE); PROTEIN,URINE NEGATIVE (NEGATIVE)
[2021-11-25 16:23] LABS: BILIRUBIN,TOTAL 1.5 MG/DL (0.1-1.0); CALCIUM 8.9 MG/DL (8.5-10.1); CREATININE SERUM 1.67 MG/DL (0.60-1.30); POTASSIUM 4.6 MMOL/L (3.6-5.0)
[2021-11-25 16:24] LABS: ALBUMIN 3.3 GM/DL (3.2-4.5)
--- NOTE | 2021-11-25 16:25 | Diagnostic Imaging Report ---
EXAMINATION: Chest, one view. HISTORY: Short of breath. COMPARISON: 04/29/2021. FINDINGS: Heart is mildly enlarged. No pleural effusion or pneumothorax. No edema or pneumonia. Calcified granuloma in the right apex is unchanged. A spinal stimulator is present. IMPRESSION: 1. Clear lungs. Dictated by: Dictated on workstation # [id number]
[2021-11-25 16:32] LABS: BAND NEUTROPHILS 4 %; BASOPHILS % (MANUAL) 0 %; EOSINOPHILS % (MANUAL) 1 %; LYMPHOCYTES % (MANUAL) 7 %; MONOCYTES % (MANUAL) 9 %; NEUTROPHILS % (MANUAL) 79 %; PLATELET ESTIMATE NORMAL; RBC MORPH NORMAL
[2021-11-25 16:33] LABS: BACTERIA,URINE LARGE /HPF; WBC,URINE TNTC /HPF
--- NOTE | 2021-11-25 16:57 | Diagnostic Imaging Report ---
PROCEDURE: CT head without contrast. TECHNIQUE: Multiple contiguous axial images were obtained through the brain without the use of intravenous contrast. Auto Exposure Controls were utilized during the CT exam to meet ALARA standards for radiation dose reduction. INDICATION: Fell, headache There is no mass, shift of the midline or hemorrhage to suggest an acute intracranial abnormality. The ventricles are not abnormally dilated and seem similar in size to the prior PET/CT exam of 10/13/2021. The bone windows show no evidence for fracture or for destructive lesion. The sinuses are generally clear The orbits are symmetrical and within normal limits. IMPRESSION: 1. There is no evidence for an acute intracranial abnormality. 2. If clinical concern regarding an underlying abnormality persists, then MRI would be recommended for further study. Dictated by: Dictated on workstation # [id number]
[2021-11-25] MEDS ORDERED: NS IV 1000 ML 1,000 ML IV SCH (17:15)
[2021-11-25] MEDS ORDERED: cefTRIAXone 1 GM PRE-MIX 50 ML IV ONE (17:15)
[2021-11-25 23:21] VITALS: BP 152/48
== END 2021-11-25 23:05 | disposition short-term general hospital (02) ==
LOC: EDUNIT# 15:15 → ER FS 15:17
DX: R53.1 Weakness (principal); N39.0 Urinary tract infection, site not specified; I11.0 Hypertensive heart disease with heart failure; I50.9 Heart failure, unspecified; E11.9 Type 2 diabetes mellitus without complications; Z79.82 Long term (current) use of aspirin
CPT/HCPCS: 36415; 51702; 70450; 71045; 80053; 81000; 83605; 84484; 85007; 85027; 87040; 87077; 87088; 87186; 93005

== ENCOUNTER 2021-12-15 10:23 | Emergency (ER) | payer MEDICARE, OTHER ==
[~2021-12-15] VITALS: Ht 177 cm; Wt 90.0 kg
[2021-12-15 10:45] VITALS: BP 145/57
--- NOTE | 2021-12-15 10:51 | ED Cough/URI ---
General Chief Complaint: COVID19 Suspect/Confirmed Source: patient Exam Limitations: clinical condition History of Present Illness Date Seen by Provider: Dec 15, 2021 Time Seen by Provider: 10:30 Initial Comments Patient is an 89-year-old [facility] patient with a history of dementia currently being treated for Covid who presents with reported hypoxia and low blood pressure. Patient is satting 99% on room air with normal blood pressure on ED arrival. Breathing is nonlabored and his breath sounds are coarse. History is limited to the patient's physical condition and his nonverbal status. Timing/Duration: this morning Prior Episodes/Possible Cause: other Modifying Factors: Improves With Other Associated Symptoms: other Allergies and Home Medications Allergies Coded Allergies: No Known Drug Allergies (Unverified , 03/31/20) Patient Home Medication List Home Medication List Reviewed: Yes Aspirin (Aspirin) 81 Mg Tab.chew, 81 MG PO DAILY Prescribed by: MARKOS GREWAL on 04/03/20 1224 Atenolol (Atenolol) 50 Mg Tablet, 50 MG PO DAILY, (Reported) Entered as Reported by: JONA DÍAZ on 03/31/20 1439 Cefdinir (Cefdinir) 300 Mg Capsule, 300 MG PO BID Prescribed by: SWETA IBARRA on 04/03/20 1239 Furosemide (Furosemide) 40 Mg Tablet, 40 MG PO DAILY Prescribed by: MARKOS GREWAL on 04/03/20 1224 Gabapentin (Gabapentin) 300 Mg Capsule, 300 MG PO BID, (Reported) Entered as Reported by: JONA DÍAZ on 03/31/20 1439 Glyburide (Glyburide) 5 Mg Tablet, 10 MG PO DAILY, (Reported) Entered as Reported by: JONA DÍAZ on 03/31/20 1439 Glyburide (Glyburide) 5 Mg Tablet, 5 MG PO 1200,1800, (Reported) Entered as Reported by: JONA DÍAZ on 03/31/20 1439 Pioglitazone HCl (Pioglitazone HCl) 30 Mg Tablet, 30 MG PO DAILY, (Reported) Entered as Reported by: JONA DÍAZ on 03/31/20 1439 Potassium Chloride (Potassium Chloride) 10 Meq Capsule.er, 10 MEQ PO DAILY Prescribed by: MARKOS GREWAL on 04/03/20 1224 Review of Systems Review of Systems Constitutional: see HPI Respiratory: see HPI Cardiovascular: see HPI Gastrointestinal: see HPI Genitourinary: see HPI Musculoskeletal: see HPI Skin: see HPI Psychiatric/Neurological: See HPI Hematologic/Lymphatic: See HPI Immunological/Allergic: see HPI All Other Systems Reviewed Negative Unless Noted: Yes Past Vrqbbjp-Gldqcr-Ohfyrf Hx Patient Social History Tobacco Use?: No Use of E-Cig and/or Vaping dev: No Substance use?: No Alcohol Use?: No Past Medical History Surgeries: No Respiratory: No Cardiac: Yes (CHF) Cardiomyopathy, Chronic Edema/Swelling, Hypertension Genitourinary: No Gastrointestinal: No Musculoskeletal: No Endocrine: Yes Diabetes, Non-Insulin dep HEENT: No Cancer: No Psychosocial: No Integumentary: No Blood Disorders: No Physical Exam Vital Signs - First Documented 12/15/21 10:45 Temp 36.3 Pulse 75 Resp 18 B/P (MAP) 145/57 (86) O2 Delivery Nasal Cannula Capillary Refill : Height: '" Weight: lbs. oz. kg; 28.00 BMI Method: General Appearance: WD/WN, no apparent distress Eyes: Bilateral Eye Normal Inspection, Bilateral Eye PERRL HEENT: PERRL/EOMI Neck: supple Respiratory: no respiratory distress, no accessory muscle use, rhonchi Cardiovascular: normal peripheral pulses, regular rate, rhythm Gastrointestinal: non tender Extremities: swelling, other (Pressure boots to lower legs) Neurologic/Psychiatric: other (Somnolent, alerts to tactile command) Focused Exam Sepsis Stage: Ruled Out Progress/Results/Core Measures Suspected Sepsis SIRS Temperature: Pulse: Respiratory Rate: Laboratory Tests 12/15/21 10:35: White Blood Count 11.5H Blood Pressure / Mean: Laboratory Tests 12/15/21 10:35: Creatinine 1.24, Platelet Count 263, Total Bilirubin 1.0 Results/Orders Lab Results Laboratory Tests Test 12/15/21 10:35 Range/Units White Blood Count 11.5 H 4.3-11.0 10^3/uL Red Blood Count 3.78 L 4.30-5.52 10^6/uL Hemoglobin 10.8 L 13.3-17.7 g/dL Hematocrit 35 L 40-54 % Mean Corpuscular Volume 91 80-99 fL Mean Corpuscular Hemoglobin 29 25-34 pg Mean Corpuscular Hemoglobin Concent 31 L 32-36 g/dL Red Cell Distribution Width 13.9 10.0-14.5 % Platelet Count 263 130-400 10^3/uL Mean Platelet Volume 10.4 9.0-12.2 fL Immature Granulocyte % (Auto) 1 % Neutrophils (%) (Auto) 84 H 42-75 % Lymphocytes (%) (Auto) 8 L 12-44 % Monocytes (%) (Auto) 6 0-12 % Eosinophils (%) (Auto) 2 0-10 % Basophils (%) (Auto) 0 0-10 % Neutrophils # (Auto) 9.6 H 1.8-7.8 X 10^3 Lymphocytes # (Auto) 0.9 L 1.0-4.0 X 10^3 Monocytes # (Auto) 0.7 0.0-1.0 X 10^3 Eosinophils # (Auto) 0.2 0.0-0.3 10^3/uL Basophils # (Auto) 0.1 0.0-0.1 10^3/uL Immature Granulocyte # (Auto) 0.1 0.0-0.1 10^3/uL Neutrophils % (Manual) 83 % Lymphocytes % (Manual) 3 % Monocytes % (Manual) 3 % Eosinophils % (Manual) 0 % Basophils % (Manual) 0 % Band Neutrophils 5 % Atypical Lymphocytes 6 % Platelet Estimate NORMAL Hypochromasia 1+ Anisocytosis 2+ Microcytosis 1+ Macrocytosis 1+ Sodium Level 142 135-145 MMOL/L Potassium Level 3.9 3.6-5.0 MMOL/L Chloride Level 100 98-107 MMOL/L Carbon Dioxide Level 32 21-32 MMOL/L Anion Gap 10 5-14 MMOL/L Blood Urea Nitrogen 19 H 7-18 MG/DL Creatinine 1.24 0.60-1.30 MG/DL Estimat Glomerular Filtration Rate 56 BUN/Creatinine Ratio 15 Glucose Level 167 H 70-105 MG/DL Calcium Level 8.7 8.5-10.1 MG/DL Corrected Calcium 9.7 8.5-10.1 MG/DL Total Bilirubin 1.0 0.1-1.0 MG/DL Aspartate Amino Transf (AST/SGOT) 19 5-34 U/L Alanine Aminotransferase (ALT/SGPT) 10 0-55 U/L Alkaline Phosphatase 125 40-136 U/L Pro-B-Type Natriuretic Peptide 9493.0 H <75.0 PG/ML Total Protein 6.7 6.4-8.2 GM/DL Albumin 2.7 L 3.2-4.5 GM/DL My Orders Orders - RUPERT CURRIE DO Cbc With Automated Diff (12/15/21 10:44) Comprehensive Metabolic Panel (12/15/21 10:44) Chest 1 View Ap/Pa Only (12/15/21 10:44) Probnp Fs (12/15/21 10:44) Manual Differential (12/15/21 10:35) Furosemide Injection (Lasix Injection) (12/15/21 12:00) Medications Given in ED Current Medications Medications Dose Ordered Sig/Chun Route Start Time Stop Time Status Last Admin Dose Admin Furosemide 40 mg ONCE ONCE IVP 12/15/21 12:00 12/15/21 12:01 DC 12/15/21 12:14 40 MG Vital Signs/I&O 12/15/21 10:45 Temp 36.3 Pulse 75 Resp 18 B/P (MAP) 145/57 (86) O2 Delivery Nasal Cannula Capillary Refill : Departure Communication (Admissions) Chest x-ray: Pulmonary congestion possible infiltrate with possible infiltrate Patient with pulmonary vascular congestion without overt respiratory distress. Possible pulmonary infiltrate on chest x-ray consistent with Covid. IV Lasix and antibiotics given. Will return to nursing facility with treatment for congestive heart failure and possible community-acquired pneumonia. Family members updated treatment plan peer Impression Primary Impression: Acute exacerbation of CHF (congestive heart failure) Additional Impression: Community acquired pneumonia Disposition: 01 HOME, SELF-CARE Condition: Stable Departure-Patient Inst. Decision time for Depature: 13:11 Referrals: DARIN BRADLEY MD (PCP/Family) Primary Care Physician Patient Instructions: Heart Failure and Atrial Fibrillation, Pneumonia, Adult (DC) Add. Discharge Instructions: Indra was evaluated in the emergency department for shortness of breath. His exam is is consistent with Covid, compensated congestive heart failure with possible pneumonia. Please increase his Lasix from 20 mg once daily to 40 mg t wice daily for the next 3 days and take doxycycline as directed. Follow-up with his PCP or [facility] attending in 5 days for reevaluation and repeat labs. All discharge instructions reviewed with patient and/or family. Voiced understanding. Scripts Furosemide (Lasix) 40 Mg Tablet 40 MG PO BID, #6 TAB Prov: RUPERT CURRIE DO 12/15/21 Doxycycline Hyclate (Doxycycline Hyclate) 100 Mg Tablet 100 MG PO BID, #20 TAB 0 Refills Prov: RUPERT CURRIE DO 12/15/21 RUPERT CURRIE DO Dec 15, 2021 10:51
[2021-12-15 10:56] LABS: BASOPHILS # (AUTO) 0.1 10^3/uL (0.0-0.1); BASOPHILS % (AUTO) 0 % (0-10); EOSINOPHILS # (AUTO) 0.2 10^3/uL (0.0-0.3); EOSINOPHILS % (AUTO) 2 % (0-10); HEMATOCRIT 35 % (40-54); HEMOGLOBIN 10.8 g/dL (13.3-17.7); LYMPHOCYTES # (AUTO) 0.9 X 10^3 (1.0-4.0); LYMPHOCYTES % (AUTO) 8 % (12-44); MEAN CORPUSCULAR HEMOGLOBIN 29 pg (25-34); MEAN CORPUSCULAR HGB CONC 31 g/dL (32-36); MEAN CORPUSCULAR VOLUME 91 fL (80-99); MEAN PLATELET VOLUME 10.4 fL (9.0-12.2); MONOCYTES # (AUTO) 0.7 X 10^3 (0.0-1.0); MONOCYTES % (AUTO) 6 % (0-12); NEUTROPHILS # (AUTO) 9.6 X 10^3 (1.8-7.8); NEUTROPHILS % (AUTO) 84 % (42-75); PLATELET COUNT 263 10^3/uL (130-400); WHITE BLOOD COUNT 11.5 10^3/uL (4.3-11.0)
--- NOTE | 2021-12-15 11:04 | Diagnostic Imaging Report ---
INDICATION: COVID positive, shortness of air, declining in health. TECHNIQUE: Single-view chest at 10:50 a.m. CORRELATION STUDY: 11/25/2021. FINDINGS: Heart size remains enlarged. Mediastinum is prominent. Vasculature is overall increased. Bilateral pulmonary opacities noted, most pronounced in the left mid and lower lung field, suspect for superimposed infiltrate or edema. Calcified granuloma in the right upper lobe. Thoracic spine stimulator. Old healed left posterolateral rib fractures. IMPRESSION: 1. Cardiac enlargement stable with vasculature appearing increased from prior. 2. Bilateral pulmonary opacities, most pronounced in the left mid and lower lung field, suspect for superimposed infiltrate. Possibility of edema not excluded. Dictated by: Dictated on workstation # [id number]
[2021-12-15 11:10] LABS: ANISOCYTOSIS 2+; ATYPICAL LYMPHOCYTES 6 %; BAND NEUTROPHILS 5 %; BASOPHILS % (MANUAL) 0 %; EOSINOPHILS % (MANUAL) 0 %; HYPOCHROMASIA 1+; LYMPHOCYTES % (MANUAL) 3 %; MONOCYTES % (MANUAL) 3 %; NEUTROPHILS % (MANUAL) 83 %; PLATELET ESTIMATE NORMAL
[2021-12-15 11:11] LABS: MICROCYTOSIS 1+
[2021-12-15 11:16] LABS: CREATININE SERUM 1.24 MG/DL (0.60-1.30); POTASSIUM 3.9 MMOL/L (3.6-5.0)
[2021-12-15 11:17] LABS: ALBUMIN 2.7 GM/DL (3.2-4.5); CALCIUM 8.7 MG/DL (8.5-10.1); TOTAL PROTEIN 6.7 GM/DL (6.4-8.2)
[2021-12-15] MEDS ORDERED: FUROSEMIDE 40 MG/4 ML INJ (LASIX) IVP ONE (12:00)
[2021-12-15] MEDS ORDERED: DOXY100T2 PO (13:20)
[2021-12-15] MEDS ORDERED: FURO-124 PO (13:20)
[2021-12-15] MEDS ORDERED: cefTRIAXone 1 GM PRE-MIX 50 ML IV ONE ×3 (13:27→13:30)
== END 2021-12-15 13:40 | disposition home or self-care (01) ==
LOC: EDUNIT# 10:23 → ER FS 10:24
DX: I11.0 Hypertensive heart disease with heart failure (principal); I50.9 Heart failure, unspecified; J18.9 Pneumonia, unspecified organism; E11.9 Type 2 diabetes mellitus without complications; Z79.82 Long term (current) use of aspirin
CPT/HCPCS: 36415; 71045; 80053; 83880; 85007; 85027; 99283